=== PATIENT | male | born 1955 | race Caucasian/White ===

== ENCOUNTER 2016-11-10 06:04 | Inpatient (IN) | payer BC ==
--- NOTE | 2016-11-10 06:01 | PCM.PREANE ---
Preanesthetic Assessment - Anesthesia/Transfusion/Family Hx Anesthesia History: Prior Anesthesia Without Reaction Family History of Anesthesia Reaction: No Transfusion History: No Prior Transfusion(s) Intubation History: Unknown - Review of Systems General: No Symptoms Pulmonary: No Symptoms Cardiovascular: No Symptoms Gastrointestinal: No symptoms (GERD) Neurological: No Symptoms Other: Reports: None (history of blood clotting disorder), Thyroid Problems ( hypothyroid) - Physical Assessment NPO Status Date: 11/09/16 NPO Status Time: 22:00 Pulse: 80 O2 Sat by Pulse Oximetry: 97 Respiratory Rate: 16 Blood Pressure: 172/74 Temperature: 37.0 C Height: 1.72 m Weight: 87.543 kg ASA Class: 2 Mental Status: Alert & Oriented x3 Airway Class: Mallampati = 1 Dentition: Reports: Normal Dentition, Caries Thyro-Mental Finger Breadths: 3 Mouth Opening Finger Breadths: 3 ROM/Head Extension: Full Lungs: Clear to auscultation, Normal respiratory effort Cardiovascular: Regular Rate, Irregular Rhythm (known pac's noted per EKG) - Lab Values: Laboratory Last Values MRSA (PCR) Negative 10/29/16 13:18 Lab values reviewed and noted and within acceptable ranges to proceed with scheduled procedure. Platelets= 161,000 CXR: negative except minimal scoliosis noted - Imaging/EKG Impressions: EKG: atrial arrhtythmia with pac's atrial [id number]. Holter Monitor: Basic rhythm =SR rate [id number], average rate=60bpm. - Allergies Allergies/Adverse Reactions: Allergies Allergy/AdvReac Type Severity Reaction Status Date / Time No Known Allergies Allergy Verified 11/09/16 16:27 - Anesthesia Plan Pre-Op Medication Ordered: None - Acknowledgements Anesthesia Type Planned: Spinal Pt an Appropriate Candidate for the Planned Anesthesia: Yes Alternatives and Risks of Anesthesia Discussed w Pt/Guardian: Yes Pt/Guardian Understands and Agrees with Anesthesia Plan: Yes PreAnesthesia Questionnaire HEENT History: Reports: Impaired Vision, Other (See Below) Other HEENT History: wears glasses Cardiovascular History: Reports: High Cholesterol Respiratory History: Reports: None 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 History: Reports: BPH, Other (See Below) Other 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 History: urinary frequency 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 Neurological History: Reports: None Psychiatric History: Reports: None Endocrine/Metabolic History: Reports: Hypothyroidism Hematologic History: Reports: Bleeding Disorder Immunologic History: Reports: None Oncologic (Cancer) History: Reports: None Dermatologic History: Reports: None - Past Surgical History Head Surgeries/Procedures: Reports: None GI Surgical History: Reports: Colonoscopy Musculoskeletal Surgical History: Reports: Arthroscopic Knee - SUBSTANCE USE Smoking Status *Q: Former Smoker Tobacco Use Within Last Twelve Months: No Recreational Drug Use History: No - HOME MEDS Home Medications: Home Meds Ascorbic Acid [Vitamin C] 1,000 mg PO DAILY 11/09/16 [History] Calcium Carbonate [Calcium] 600 mg PO DAILY 11/09/16 [History] Fish Oil/[place]-3 Fatty Acids [Fish Oil 1,000 MG] 1,000 mg PO DAILY 11/09/16 [ History] Glucosamine HCl [Glucosamine] 1,500 mg PO DAILY 11/09/16 [History] Magnesium Oxide [Magnesium] 400 mg PO DAILY 11/09/16 [History] Thyroid [[place] Thyroid] 60 mg PO DAILY 11/09/16 [History] - CURRENT (IN HOUSE) MEDS Current Meds: Current Medications Morphine Sulfate 8 mg/Epinephrine HCl 0.3 mg/Cefuroxime Sodium 750 mg/Ketorolac Tromethamine 30 mg/Sodium Chloride 27.9 ml 0 mg .XX ONETIME ONE Stop: 11/10/16 05:02 Lactated Ringer's (Ringers, Lactated) 1,000 mls @ 125 mls/hr IV ASDIRECTED JENNIFER Lidocaine/Sodium Bicarbonate (Buffered Lidocaine 1% In Ns 8.4%) 0.25 ml IV ONETIME PRN PRN Reason: Prior to IV Start Sodium Chloride (Saline Flush) 10 ml FLUSH ASDIRECTED PRN PRN Reason: Keep Vein Open
[~2016-11-10 06:04] MED LIST: Iodine/Sodium Iodide 2% Tincture 30 ML Bottle ONE; Lactated Ringers 1,000 ML IV SCH; Lidocaine 1%/Sod Bicarbonate in NS 8.4% 1 ML Syringe IV PRN; Sodium Chloride 0.9% 10 ML Syringe FLUSH PRN; ceFAZolin 1 GM Vial ONE
[2016-11-10] MEDS ORDERED: ceFAZolin 1 GM Vial ONE (06:21)
[2016-11-10] MEDS ORDERED: Lactated Ringers 1,000 ML ONE ×2 (06:21→08:35)
[2016-11-10] MEDS ORDERED: Propofol 200 MG/20 ML SDV ONE ×2 (06:21→08:17)
[2016-11-10] MEDS ORDERED: Ondansetron 4 MG/2 ML SDV ONE (06:21)
[2016-11-10] MEDS ORDERED: Midazolam 1 MG/ML 2 ML SDV ONE ×2 (06:22→08:46)
[2016-11-10] MEDS ORDERED: fentaNYL 100 MCG/2 ML SDV ONE (06:23)
[2016-11-10] MEDS ORDERED: Morphine PF 10 MG/10 ML SDV ONE (06:23)
[2016-11-10] MEDS ORDERED: ePHEDrine 50 MG/ML SDV ONE ×2 (07:20→08:54)
[2016-11-10] MEDS ORDERED: HYDROmorphone 0.5 MG/0.5 ML Syringe IVPUSH PRN (07:25)
[2016-11-10] MEDS ORDERED: Ondansetron 4 MG/2 ML SDV IVPUSH PRN ×2 (07:25→10:49)
[2016-11-10] MEDS: Morphine 8 MG, EPINEPHrine 0.3 MG, Cefuroxime 750 MG, Ketorolac 30 MG, Sodium Chloride ... ONE ×15 (08:27→11:53)
[2016-11-10] MEDS: Bupivacaine 0.25% 30 ML SDV ONE ×2 (08:28→08:35)
[2016-11-10] MEDS ORDERED: diphenhydrAMINE 50 MG/ML SDV IVPUSH PRN (09:00)
[2016-11-10] MEDS ORDERED: ePHEDrine 50 MG/ML SDV IVPUSH PRN (09:00)
[2016-11-10] MEDS ORDERED: fentaNYL 100 MCG/2 ML SDV IVPUSH PRN (09:00)
--- NOTE | 2016-11-10 09:15 | PCM.POSTAN ---
POST ANESTHESIA ASSESSMENT - MENTAL STATUS Mental Status: alert - VITAL SIGNS Pulse Rate: 60 SaO2: 96 Resp Rate: 12 Blood Pressure: 127/57 Temperature: 36.6 C - RESPIRATORY Respiratory Status: respiratory rate WNL, airway patent, O2 saturation stable - CARDIOVASCULAR CV Status: pulse rate WNL, blood pressure stable - GASTROINTESTINAL GI Status: no symptoms - POST OP HYDRATION Hydration Status: adequate & stable
--- NOTE | 2016-11-10 10:30 | CR ---
Right knee: Two portable views of the right knee were obtained. Comparison: No previous study. Knee prosthesis is seen. Components are aligned. Soft tissue air is seen. This is from the surgical procedure. Underlying bony structures are intact. Impression: 1. Recently placed right knee prosthesis. Nothing acute is seen. Diagnostic code #2
[2016-11-10] MEDS ORDERED: Magnesium Hydroxide 400 MG/5 ML Susp 30 ML Cup PO PRN (10:48)
[2016-11-10] MEDS ORDERED: Morphine 2 MG/ML Syringe IVPUSH PRN (10:48)
--- NOTE | 2016-11-10 10:48 | PCM.OPNOTE ---
- General Post-Op/Procedure Note Date of Surgery/Procedure: 11/10/16 Operative Procedure(s): right total knee arthroplasty Pre Op Diagnosis: right knee osteoarthrosis Post-Op Diagnosis: Same Anesthesia Technique: Local, MAC, Spinal Primary Surgeon: Antione Kern Anesthesia Provider: Carolyne Mauricio Brick Cleaner: Bonnie Tristan Brick Cleaner: Savana Cronin EBL in mLs: 100 Complications: None Condition: Good Free Text/Narrative:: Intake & Output 11/09/16 11/10/16 11/10/16 22:59 06:59 14:59 Intake Total 200 Output Total 455 Balance -255
[2016-11-10] MEDS ORDERED: Bisacodyl 5 MG Tab PO PRN (10:49)
[2016-11-10] MEDS ORDERED: Sennosides 8.6 MG Tab PO PRN (10:50)
--- NOTE | 2016-11-10 12:17 | PCM.CONS ---
H&P History of Present Illness - General Date of Service: 11/10/16 Admit Problem/Dx: Admission Diagnosis/Problem Admission Diagnosis/Problem Osteoarthritis of knee Source of Information: Patient, EMS Notes Reviewed, Old Records History Limitations: Reports: No Limitations - History of Present Illness Initial Comments - Free Text/Narative: Tao is seen postoperatively this afternoon, s/p Rt TKA with Dr. Kern. Pain is under good control, nausea postop but no vomiting at time of my exam. Otherwise doing well and without concerns. PMH significant for Hypothyroidism, HLD, BPH, GERD, hx clotting disorder and osteoarthritis. - Related Data Allergies/Adverse Reactions: Allergies Allergy/AdvReac Type Severity Reaction Status Date / Time No Known Allergies Allergy Verified 11/10/16 07:03 Home Medications: Home Meds Ascorbic Acid [Vitamin C] 1,000 mg PO DAILY 11/09/16 [History] Calcium Carbonate [Calcium] 600 mg PO DAILY 11/09/16 [History] Fish Oil/[place]-3 Fatty Acids [Fish Oil 1,000 MG] 1,000 mg PO DAILY 11/09/16 [ History] Glucosamine HCl [Glucosamine] 1,500 mg PO DAILY 11/09/16 [History] Magnesium Oxide [Magnesium] 400 mg PO DAILY 11/09/16 [History] Thyroid [[place] Thyroid] 60 mg PO DAILY 11/09/16 [History] Past Medical History HEENT History: Reports: Impaired Vision, Other (See Below) Other HEENT History: wears glasses Cardiovascular History: Reports: High Cholesterol Respiratory History: Reports: None 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 History: Reports: BPH, Other (See Below) Other 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 History: 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 Neurological History: Reports: None Psychiatric History: Reports: None Endocrine/Metabolic History: Reports: Hypothyroidism Hematologic History: Reports: Bleeding Disorder Immunologic History: Reports: None Oncologic (Cancer) History: Reports: None Dermatologic History: Reports: None - Past Surgical History Head Surgeries/Procedures: Reports: None GI Surgical History: Reports: Colonoscopy Musculoskeletal Surgical History: Reports: Arthroscopic Knee Social & Family History - Tobacco Use Smoking Status *Q: Former Smoker Used Tobacco, but Quit: Yes Month Tobacco Last Used: 30 some years ago - Recreational Drug Use Recreational Drug Use: No H&P Review of Systems - Review of Systems: Review Of Systems: See Below General: Reports: No Symptoms HEENT: Reports: No Symptoms Pulmonary: Reports: No Symptoms Cardiovascular: Reports: No Symptoms Gastrointestinal: Reports: No Symptoms 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: Reports: No Symptoms Musculoskeletal: Reports: Leg Pain Psychiatric: Reports: No Symptoms Neurological: Reports: No Symptoms Exam - Exam Exam: See Below - Vital Signs Vital Signs: Last Vital Signs Temp 97.4 F 11/10/16 11:50 Pulse 91 11/10/16 11:50 Resp 16 11/10/16 11:50 BP 107/80 11/10/16 11:48 Pulse Ox 96 11/10/16 11:50 Weight: 193 lb - Exam Quality Assessment: DVT Prophylaxis General: Alert, Oriented, Cooperative HEENT: Conjunctiva Clear, EOMI, Hearing Intact, Mucosa Moist & [place], Pupils Equal, Pupils Reactive, PERRLA Neck: Supple Lungs: Clear to Auscultation, Normal Respiratory Effort Cardiovascular: Regular Rate, Regular Rhythm Abdomen: Normal Bowel Sounds, Soft. No: Distention, Guarding, Rigidity, Rebound , Splenomegaly (Male) Exam: Deferred Rectal (Males) Exam: Deferred Extremities: Other ([place] wrap to rt leg; SCD's, ice to rt knee) Peripheral Pulses: 1+: Dorsalis Pedis (L), Dorsalis Pedis (R) Skin: Warm, Dry Neurological: Cranial Nerves Intact Neuro Extensive - Mental Status: Alert, Oriented x3, Normal Mood/Affect, Normal Cognition Psychiatric: Alert, Normal Affect, Normal Mood Consult PN Assessment/Plan POD#: 0 Procedures: Procedures ASSAY OF FERRITIN (10/23/16) ASSAY OF FREE THYROXINE (05/28/16) ASSAY OF PREALBUMIN (10/23/16) ASSAY THYROID STIM HORMONE (05/28/16) CHEST X-RAY 2VW FRONTAL&LATL (10/23/16) COMPLETE CBC W/AUTO DIFF WBC (10/23/16) COMPREHEN METABOLIC PANEL (10/23/16) ECG MONIT/REPRT UP TO 48 HRS (10/23/16) ECG MONIT/REPRT UP TO 48 HRS (10/23/16) LIPID PANEL (10/23/16) PROTHROMBIN TIME (10/23/16) ROUTINE VENIPUNCTURE (10/23/16) THROMBOPLASTIN TIME PARTIAL (10/23/16) URINALYSIS AUTO W/SCOPE (05/28/16) VITAMIN D 25 HYDROXY (10/23/16) (1) S/P total knee arthroplasty SNOMED Code(s): 0110108381300, 735828588, 8970462281727 Code(s): Z96.659 - PRESENCE OF UNSPECIFIED ARTIFICIAL KNEE JOINT Priority: High Current Visit: Yes Qualifiers: Laterality: right Qualified Code(s): Z96.651 - Presence of right artificial knee joint (2) Osteoarthritis SNOMED Code(s): 694486542 Code(s): M19.90 - UNSPECIFIED OSTEOARTHRITIS, UNSPECIFIED SITE Priority: High Current Visit: Yes Qualifiers: Osteoarthritis location: hip Osteoarthritis type: primary Laterality: right Qualified Code(s): M16.11 - Unilateral primary osteoarthritis, right hip (3) BPH (benign prostatic hyperplasia) SNOMED Code(s): 843645715, 361804879 Code(s): N40.0 - BENIGN PROSTATIC HYPERPLASIA WITHOUT LOWER URINRY TRACT SYMP Priority: Medium Current Visit: Yes Qualifiers: Lower urinary tract symptom detail: unspecified (4) Hypothyroid SNOMED Code(s): 59403004 Code(s): E03.9 - HYPOTHYROIDISM, UNSPECIFIED Priority: Medium Current Visit: No Qualifiers: Hypothyroidism type: unspecified Qualified Code(s): E03.9 - Hypothyroidism , unspecified (5) HLD (hyperlipidemia) SNOMED Code(s): 64117023 Code(s): E78.5 - HYPERLIPIDEMIA, UNSPECIFIED Priority: Medium Current Visit: No Qualifiers: Hyperlipidemia type: unspecified Qualified Code(s): E78.5 - Hyperlipidemia , unspecified (6) GERD (gastroesophageal reflux disease) SNOMED Code(s): 729903319 Code(s): K21.9 - GASTRO-ESOPHAGEAL REFLUX DISEASE WITHOUT ESOPHAGITIS Priority: Medium Current Visit: No Qualifiers: Esophagitis presence: esophagitis presence not specified Qualified Code(s) : K21.9 - Gastro-esophageal reflux disease without esophagitis (7) Blood clotting disorder SNOMED Code(s): 13476668 Code(s): D68.9 - COAGULATION DEFECT, UNSPECIFIED Priority: Medium Current Visit: No Problem List Initiated/Reviewed/Updated: Yes My Orders last 24 hours: My Active Orders 11/11/16 05:11 MAGNESIUM [CHEM] AM 11/11/16 09:00 Magnesium Oxide 400 mg PO DAILY Thyroid [[place] Thyroid] 60 mg PO DAILY Plan: I/P: S/P Rt TKA; with Dr. Kern, POD #0 -Pain management and DVT prophylax per primary team -PT/OT -IS/RT -Am labs; follow hgb - Postop nausea; will try zofran PRN, if not helping scopolamine transdermal. Chronic: GERD- cont with GI prophylax, pepcid BID Hypothyroid- cont home med, armour thyroid HLD BPH- monitor urine output for retention Hx of clotting disorder; DVT prophylax Other: DVT/GI prophylax PT/OT CM/SW for dc planning- plans for dc home with family Patient is Full Code status Requesting Provider: Dr. Kern Date Consult Requested: 11/10/16 Reason for Consult: Postoperative medical management Patient History Reviewed: Yes
[2016-11-10] MEDS ORDERED: Scopolamine 1.5 MG Transdermal Patch TRDERM PRN (14:44)
[2016-11-10] MEDS: ceFAZolin 2 GM in Premix Bag 1 BAG IV SCH ×2 (15:01→23:22)
--- NOTE | 2016-11-10 18:16 | OR ---
DATE OF OPERATION: 11/10/2016 SURGEON: Antione Kern MD OPERATION PERFORMED: Right total knee arthroplasty. PREOPERATIVE DIAGNOSIS: Right knee osteoarthrosis. POSTOPERATIVE DIAGNOSIS: Right knee osteoarthrosis. ANESTHESIA: Local MAC with spinal. ANESTHESIA PROVIDER: Carolyne Mauricio CRNA. DETAILER: Bonnie Tristan PA-C and Savana Cronin LPN. ESTIMATED BLOOD LOSS: 100 mL COMPLICATIONS: None. CONDITION: Stable. IMPLANTS: 1. [place] size 6 PS femur. 2. [place] size 7 universal tibial base plate. 3. [place] size 7, 9 mm PS X3 polyethylene. 4. 35 x 10 mm Gayla asymmetric patella. DESCRIPTION OF PROCEDURE: The patient was identified in the preop holding area. Proper site was marked and identified by the surgeon. The patient was taken back to the operating theater. After adequate anesthesia, the patient's right lower extremity had a nonsterile tourniquet applied and it was then sterilely prepped and draped in the usual sterile fashion. OR timeout was performed. The patient received 2 g IV Ancef. At this time, right lower extremity was exsanguinated. Tourniquet was insufflated to 300 mmHg. Standard medial parapatellar incision was made. Medial parapatellar arthrotomy was created. Deep fibers of the MCL were raised and anterior fat pad was resected. At this time, attention was turned to the patella. Patella measured 24, it was resected to a 14 for a 35 x 10 mm patella. Drill holes were then drilled and found to be in adequate position. The drill was then drilled in the distal femur and the intramedullary distal femoral cutting guide was then placed. 8 mm was resected off the distal femur and was found to be an adequate resection. Sizing guide was placed. It was found to be a size 6 femur that was shown on the implant record at the beginning of this dictation. The drill holes were drilled for the epicondylar axis using [place] line and epicondyles as reference. At this time, the 4-in-1 cutting block was placed. An anterior posterior and anterior and posterior chamfer cuts were then completed. The correct size box cut was then placed and the box cut was completed and found to be an adequate resection. Attention was turned to the tibia. The posterior medial lateral retractors were placed. The extramedullary tibial guide was placed. It was placed in the old footprint of the ACL. It was aligned with the center of the ankle and 0 degrees of slope, 9 mm was then resected off the unaffected lateral side. There was found to be an acceptable reduction. At this time, posterior osteophytes were removed along with medial and lateral meniscus. A trial implant was placed with a correct sized tibia that was mentioned at the beginning of the dictation. A 9 mm trial spacer was then placed. The patient's knee was brought through range of motion. The patella was tracking centrally and was stable to varus and valgus stress. Alignment was found to be roughly at 0 degrees. At this time, cement was mixed on the back table. The tibia was stamped and drilled in proper rotation. All cut surfaces were irrigated with pulse lavage irrigation with Ancef and then completely dried. Once this was completed, then the cement was ready. The universal tibial base plate was cemented in place. Next, the [address] and the 9-mm PS X3 polyethylene was placed. The patient's knee was brought into full extension. Excess cement was removed. The patella was then cemented in place at this time. Tourniquet was deflated. One liter dilute Betadine solution was irrigated through the knee along with 3 L of pulse lavage irrigation with Ancef. Periarticular injection was then completed. The patient's knee was brought through a range of motion. Once the cement had time to set up and it was found to be stable to varus valgus stress, the patella was tracking centrally with full range of motion. At this time, a #2 barbed suture was used for closure of the medial parapatellar arthrotomy. Topical tranexamic acid was placed. 2-0 Vicryl was used subcutaneously, a running 3-0 Monocryl was used subcuticularly. The patient tolerated the procedure well and was sent to the PACU in stable condition. MAGDI /[id number]
[2016-11-10] MEDS: Docusate Sodium 100 MG Cap PO SCH (20:49)
[2016-11-10] MEDS: Famotidine 20 MG Tab PO SCH (20:49)
[2016-11-10] MEDS: Cyclobenzaprine 10 MG Tab PO PRN (23:27)
[2016-11-10] MEDS: Acetaminophen/oxyCODONE 325-5 MG Tab PO PRN (23:27)
[2016-11-11] MEDS ORDERED: Thyroid 60 MG Tab PO SCH (06:00)
[2016-11-11] MEDS: ceFAZolin 2 GM in Premix Bag 1 BAG IV SCH (06:12)
[2016-11-11] MEDS ORDERED: Multivitamins,Therapeutic Tab PO SCH (07:00)
[2016-11-11] MEDS: Acetaminophen/oxyCODONE 325-5 MG Tab PO PRN ×2 (07:49→13:27)
--- NOTE | 2016-11-11 08:26 | PCM48HPAN ---
Post Anesthesia Note - EVALUATION WITHIN 48HRS OF ANESTHETIC Vital Signs in Normal Range: Yes Patient Participated in Evaluation: Yes Respiratory Function Stable: Yes Airway Patent: Yes Cardiovascular Function Stable: Yes Hydration Status Stable: Yes Pain Control Satisfactory: Yes Nausea and Vomiting Control Satisfactory: Yes Mental Status Recovered: Yes - COMMENTS/OBSERVATIONS Free Text/Narrative:: Pt did have some nausea yesterday ending at about 7 pm. now resolved. spinal resolved completely. Good pain control on oral meds. up to restroom without difficulty, passing urine. did have and episode of bradycardia down to the high thirties without other symptoms. EKG obtained and showed Sinus rhythm. no further episodes, no further treatment. Pt states this happens to him when he is in the hospital
--- NOTE | 2016-11-11 08:40 | PCM.PN ---
<AlondraDelilah M - Last Filed: 11/11/16 11:23> - General Info Date of Service: 11/11/16 Admission Dx/Problem (Free Text): Admission Diagnosis/Problem Admission Diagnosis/Problem Osteoarthritis of knee POD #[address] Kern Pain under good control, nausea resolved. Bradycardia reported overnight; patient with baseline bradycardia; Holter obtained preop per PCP. Patient is asymptomatic with normal B/P, no dizziness, lightheadedness, palpitations or other concerns. Plans for DC home today with . Functional Status: Reports: pain controlled, tolerating diet, ambulating, urinating. Denies: new symptoms - Review of Systems General: Reports: No Symptoms HEENT: Reports: no symptoms Pulmonary: Reports: no symptoms Cardiovascular: Reports: No Symptoms Gastrointestinal: Reports: No symptoms 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: Reports: no symptoms Musculoskeletal: Reports: leg pain Skin: Reports: no symptoms Neurological: Reports: No Symptoms Psychiatric: Reports: no symptoms - Patient Data Vitals - most recent: Last Vital Signs Temp 98.1 F 11/11/16 07:54 Pulse 30 L 11/11/16 07:54 Resp 18 11/11/16 07:54 BP 116/55 L 11/11/16 07:54 Pulse Ox 95 11/11/16 07:54 Weight - most recent: 87.543 kg I&O - last 24 hours: Intake & Output 11/10/16 11/11/16 11/11/16 22:59 06:59 14:59 Intake Total 0 Output Total 1175 Balance -1175 Lab Results last 24 hrs: Laboratory Results - last 24 hr 11/11/16 11/11/16 Range/Units 05:21 05:21 WBC 7.67 (4.23-9.07) K/mm3 RBC 3.57 L (4.63-6.08) M/mm3 Hgb 10.8 L (13.7-17.5) gm/L Hct 32.7 L (40.1-51.0) % MCV 91.6 (79.0-92.2) fl MCH 30.3 (25.7-32.2) pg MCHC 33.0 (32.2-35.5) g/dl RDW Std Deviation 43.3 (35.1-43.9) fL Plt Count 165 (163-337) K/mm3 MPV 9.4 (9.4-12.3) fl Neut % (Auto) 67.6 (34.0-67.9) % Lymph % (Auto) 21.6 L (21.8-53.1) % Crowley % (Auto) 9.4 (5.3-12.2) % Eos % (Auto) 1.0 (0.8-7.0) Baso % (Auto) 0.3 (0.1-1.2) % Neut # (Auto) 5.18 (1.78-5.38) K/mm3 Lymph # (Auto) 1.66 (1.32-3.57) K/mm3 Crowley # (Auto) 0.72 (0.30-0.82) K/mm3 Eos # (Auto) 0.08 (0.04-0.54) K/mm3 Baso # (Auto) 0.02 (0.01-0.08) K/mm3 Sodium 138 (136-145) mEq/L Potassium 4.3 (3.5-5.1) mEq/L Chloride 102 (98-107) mEq/L Carbon Dioxide 30 (21-32) mEq/L Anion Gap 10.3 (5-15) BUN 16 (7-18) mg/dL Creatinine 1.2 (0.7-1.3) mg/dL Est Cr Clr Drug Dosing 62.48 mL/min Estimated GFR (MDRD) > 60 (>60) mL/min BUN/Creatinine Ratio 13.3 L (14-18) Glucose 117 H (74-106) mg/dL Calcium 8.1 L (8.5-10.1) mg/dL Magnesium 1.7 L (1.8-2.4) mg/dl Total Bilirubin 0.5 (0.2-1.0) mg/dL AST 12 L (15-37) U/L ALT 20 (16-63) U/L Alkaline Phosphatase 40 L (46-116) U/L Total Protein 5.9 L (6.4-8.2) g/dl Albumin 3.1 L (3.4-5.0) g/dl Globulin 2.8 gm/dL Albumin/Globulin Ratio 1.1 (1-2) Med Orders - Current: Current Medications Aspirin (Ecotrin) 325 mg PO BID [facility] Bisacodyl (Dulcolax) 5 mg PO DAILY PRN PRN Reason: Constipation Cyclobenzaprine HCl (Flexeril) 10 mg PO TID PRN PRN Reason: Spasms Last Admin: 11/10/16 23:27 Dose: 10 mg Docusate Sodium (Colace) 100 mg PO BID [facility] Last Admin: 11/10/16 20:49 Dose: 100 mg Famotidine (Pepcid) 20 mg PO BID [facility] Last Admin: 11/10/16 20:49 Dose: 20 mg Magnesium Hydroxide (Milk Of Magnesia) 30 ml PO BID PRN PRN Reason: Constipation Magnesium Oxide (Magnesium Oxide) 400 mg PO DAILY [facility] Magnesium Oxide (Magnesium Oxide) 400 mg PO DAILY [facility] Miscellaneous Information (Remove Patch) 0 ea TRDERM Q72H [facility] Morphine Sulfate (Morphine) 2 mg IVPUSH Q2H PRN PRN Reason: Breakthrough Pain Multivitamins (Thera) 1 each PO WITHBREAKFAST [facility] Last Admin: 11/11/16 07:49 Dose: 1 each Ondansetron HCl (Zofran) 4 mg IVPUSH Q6H PRN PRN Reason: Nausea/Vomiting Last Admin: 11/10/16 13:13 Dose: 4 mg Oxycodone/Acetaminophen (Percocet 325-5 Mg) 1 - 2 tab PO Q4H PRN PRN Reason: Pain Last Admin: 11/11/16 07:49 Dose: 2 tab Scopolamine (Transderm-Scop) 1.5 mg TRDERM Q72H PRN PRN Reason: Nausea Last Admin: 11/10/16 14:59 Dose: 1.5 mg Senna (Senna) 8.6 mg PO BID PRN PRN Reason: Constipation Thyroid ([place] Thyroid) 60 mg PO ACBREAKFAST [facility] Last Admin: 11/11/16 05:51 Dose: 60 mg Discontinued Medications Bupivacaine HCl (Marcaine 0.25%) Confirm Administered Dose 30 ml .ROUTE .STK- MED ONE Stop: 11/10/16 06:00 Last Admin: 11/10/16 08:35 Dose: 30 ml Cefazolin Sodium (Ancef) Confirm Administered Dose 2 gm .ROUTE .STK-MED ONE Stop: 11/10/16 06:00 Last Admin: 11/10/16 08:30 Dose: 2 gm Cefazolin Sodium (Ancef) Confirm Administered Dose 2 gm .ROUTE .STK-MED ONE Stop: 11/10/16 06:22 Morphine Sulfate 8 mg/Epinephrine HCl 0.3 mg/Cefuroxime Sodium 750 mg/Ketorolac Tromethamine 30 mg/Sodium Chloride 27.9 ml 0 mg .XX ONETIME ONE Stop: 11/10/16 07:46 Last Admin: 11/10/16 11:53 Dose: Not Given Diphenhydramine HCl (Benadryl) 25 mg IVPUSH Q6H PRN PRN Reason: pruritis Stop: 11/10/16 12:00 Ephedrine Sulfate (Ephedrine Sulfate) Confirm Administered Dose 50 mg .ROUTE .STK-MED ONE Stop: 11/10/16 07:21 Ephedrine Sulfate (Ephedrine Sulfate) 5 mg IVPUSH ASDIRECTED PRN PRN Reason: Hypotension Stop: 11/10/16 12:00 Ephedrine Sulfate (Ephedrine Sulfate) Confirm Administered Dose 50 mg .ROUTE .STK-MED ONE Stop: 11/10/16 08:55 Fentanyl (Sublimaze) Confirm Administered Dose 100 mcg .ROUTE .STK-MED ONE Stop: 11/10/16 06:24 Fentanyl (Sublimaze) 50 mcg IVPUSH Q5M PRN PRN Reason: Pain Stop: 11/10/16 09:16 Hydromorphone HCl (Dilaudid) 0.5 mg IVPUSH Q15M PRN PRN Reason: severe pain Stop: 11/10/16 07:41 Lactated Ringer's (Ringers, Lactated) 1,000 mls @ 125 mls/hr IV ASDIRECTED [facility] Last Admin: 11/10/16 06:45 Dose: 125 mls/hr Lidocaine HCl (Xylocaine-Mpf 1%) Confirm Administered Dose 10 mls @ as directed .ROUTE .STK-MED ONE Stop: 11/10/16 06:22 Lactated Ringer's (Ringers, Lactated) Confirm Administered Dose 1,000 mls @ as directed .ROUTE .STK-MED ONE Stop: 11/10/16 06:22 Cefazolin Sodium/Dextrose 2 gm (/ Premix) 50 mls @ 100 mls/hr IV Q8H [facility] Stop: 11/11/16 07:29 Last Admin: 11/11/16 06:12 Dose: 100 mls/hr Lactated Ringer's (Ringers, Lactated) Confirm Administered Dose 1,000 mls @ as directed .ROUTE .STK-MED ONE Stop: 11/10/16 08:36 Iodine (Iodine 2% Mild Tincture) Confirm Administered Dose 30 ml .ROUTE .STK- MED ONE Stop: 11/10/16 06:00 Last Admin: 11/10/16 08:26 Dose: 18 ml Lidocaine/Sodium Bicarbonate (Buffered Lidocaine 1% In Ns 8.4%) 0.25 ml IV ONETIME PRN PRN Reason: Prior to IV Start Last Admin: 11/10/16 06:45 Dose: 0.25 ml Midazolam HCl (Versed 1 Mg/Ml) Confirm Administered Dose 2 mg .ROUTE .STK-MED ONE Stop: 11/10/16 06:23 Midazolam HCl (Versed 1 Mg/Ml) Confirm Administered Dose 2 mg .ROUTE .STK-MED ONE Stop: 11/10/16 08:47 Morphine Sulfate (Duramorph Pf) Confirm Administered Dose 10 mg .ROUTE .STK-MED ONE Stop: 11/10/16 06:24 Ondansetron HCl (Zofran) Confirm Administered Dose 4 mg .ROUTE .STK-MED ONE Stop: 11/10/16 06:22 Ondansetron HCl (Zofran) 4 mg IVPUSH ONETIME PRN PRN Reason: Nausea/Vomiting Stop: 11/10/16 12:00 Propofol (Diprivan 20 Ml) Confirm Administered Dose 400 mg .ROUTE .STK-MED ONE Stop: 11/10/16 06:22 Propofol (Diprivan 20 Ml) Confirm Administered Dose 200 mg .ROUTE .STK-MED ONE Stop: 11/10/16 08:18 Sodium Chloride (Saline Flush) 10 ml FLUSH ASDIRECTED PRN PRN Reason: Keep Vein Open Stop: 11/10/16 12:00 Tranexamic Acid (Cyklokapron) Confirm Administered Dose 1,000 mg .ROUTE .STK- MED ONE Stop: 11/10/16 06:00 Last Admin: 11/10/16 08:41 Dose: 1,000 mg - Exam Quality Assessment: DVT prophylaxis General: alert, oriented, cooperative, no acute distress HEENT: Pupils equal, Pupils reactive, EOMI, Mucous membr. moist/pink Neck: supple Lungs: Clear to auscultation, Normal respiratory effort Cardiovascular: Regular Rate, Regular Rhythm Abdomen: bowel sounds present, soft, no tenderness, no distension (Male) Exam: Deferred Extremities: no edema, other (teds SCD's) Peripheral Pulses: 1+: Dorsalis Pedis (L), Dorsalis Pedis (R) Neurological: no new focal deficit Psy/Mental Status: alert, normal affect, normal mood - Problem List & Annotations (1) S/P total knee arthroplasty SNOMED Code(s): 0438026691533, 068310130, 0098243465608 Code(s): Z96.659 - PRESENCE OF UNSPECIFIED ARTIFICIAL KNEE JOINT Status: Acute Priority: High Current Visit: Yes Qualifiers: Laterality: right Qualified Code(s): Z96.651 - Presence of right artificial knee joint (2) Osteoarthritis SNOMED Code(s): 167947698 Code(s): M19.90 - UNSPECIFIED OSTEOARTHRITIS, UNSPECIFIED SITE Status: Acute Priority: High Current Visit: Yes Qualifiers: Osteoarthritis location: hip Osteoarthritis type: primary Laterality: right Qualified Code(s): M16.11 - Unilateral primary osteoarthritis, right hip (3) BPH (benign prostatic hyperplasia) SNOMED Code(s): 357393768, 326922237 Code(s): N40.0 - BENIGN PROSTATIC HYPERPLASIA WITHOUT LOWER URINRY TRACT SYMP Status: Acute Priority: Medium Current Visit: Yes Qualifiers: Lower urinary tract symptom detail: unspecified (4) Hypothyroid SNOMED Code(s): 22545653 Code(s): E03.9 - HYPOTHYROIDISM, UNSPECIFIED Status: Acute Priority: Medium Current Visit: No Qualifiers: Hypothyroidism type: unspecified Qualified Code(s): E03.9 - Hypothyroidism , unspecified (5) HLD (hyperlipidemia) SNOMED Code(s): 68355605 Code(s): E78.5 - HYPERLIPIDEMIA, UNSPECIFIED Status: Acute Priority: Medium Current Visit: No Qualifiers: Hyperlipidemia type: unspecified Qualified Code(s): E78.5 - Hyperlipidemia , unspecified (6) GERD (gastroesophageal reflux disease) SNOMED Code(s): 899732848 Code(s): K21.9 - GASTRO-ESOPHAGEAL REFLUX DISEASE WITHOUT ESOPHAGITIS Status: Acute Priority: Medium Current Visit: No Qualifiers: Esophagitis presence: esophagitis presence not specified Qualified Code(s) : K21.9 - Gastro-esophageal reflux disease without esophagitis (7) Blood clotting disorder SNOMED Code(s): 02486821 Code(s): D68.9 - COAGULATION DEFECT, UNSPECIFIED Status: Acute Priority: Medium Current Visit: No - Problem List Review Problem List Initiated/Reviewed/Updated: Yes - My Orders Last 24 Hours: My Active Orders 11/10/16 14:44 Scopolamine [Transderm-Scop] 1.5 mg TRDERM Q72H PRN 11/11/16 06:00 Thyroid [[place] Thyroid] 60 mg PO ACBREAKFAST 11/11/16 09:00 Magnesium Oxide 400 mg PO DAILY Magnesium Oxide 400 mg PO DAILY 11/13/16 15:00 Remove Patch 0 ea TRDERM Q72H - Plan Plan:: I/P: S/P Rt TKA; with Dr. Kern, POD #1 -Pain management and DVT prophylax per primary team -PT/OT -IS/RT -Am labs; follow hgb--stable - Postop nausea; will try zofran PRN, if not helping scopolamine transdermal- ---resolved Chronic: GERD- cont with GI prophylax, pepcid BID Hypothyroid- cont home med, armour thyroid HLD BPH- monitor urine output for retention Hx of clotting disorder; DVT prophylax Other: DVT/GI prophylax PT/OT CM/SW for dc planning- plans for dc home with family, today. Patient is Full Code status <Elvira Kingsley - Last Filed: 11/11/16 13:00> - Patient Data Vitals - most recent: Last Vital Signs Temp 36.7 C 11/11/16 07:54 Pulse 30 L 11/11/16 07:54 Resp 18 11/11/16 07:54 BP 116/55 L 11/11/16 07:54 Pulse Ox 95 11/11/16 07:54 I&O - last 24 hours: Intake & Output 11/10/16 11/11/16 11/11/16 22:59 06:59 14:59 Intake Total 360 380 Output Total 1175 400 Balance -815 -20 Lab Results last 24 hrs: Laboratory Results - last 24 hr 11/11/16 11/11/16 Range/Units 05:21 05:21 WBC 7.67 (4.23-9.07) K/mm3 RBC 3.57 L (4.63-6.08) M/mm3 Hgb 10.8 L (13.7-17.5) gm/L Hct 32.7 L (40.1-51.0) % MCV 91.6 (79.0-92.2) fl MCH 30.3 (25.7-32.2) pg MCHC 33.0 (32.2-35.5) g/dl RDW Std Deviation 43.3 (35.1-43.9) fL Plt Count 165 (163-337) K/mm3 MPV 9.4 (9.4-12.3) fl Neut % (Auto) 67.6 (34.0-67.9) % Lymph % (Auto) 21.6 L (21.8-53.1) % Crowley % (Auto) 9.4 (5.3-12.2) % Eos % (Auto) 1.0 (0.8-7.0) Baso % (Auto) 0.3 (0.1-1.2) % Neut # (Auto) 5.18 (1.78-5.38) K/mm3 Lymph # (Auto) 1.66 (1.32-3.57) K/mm3 Crowley # (Auto) 0.72 (0.30-0.82) K/mm3 Eos # (Auto) 0.08 (0.04-0.54) K/mm3 Baso # (Auto) 0.02 (0.01-0.08) K/mm3 Sodium 138 (136-145) mEq/L Potassium 4.3 (3.5-5.1) mEq/L Chloride 102 (98-107) mEq/L Carbon Dioxide 30 (21-32) mEq/L Anion Gap 10.3 (5-15) BUN 16 (7-18) mg/dL Creatinine 1.2 (0.7-1.3) mg/dL Est Cr Clr Drug Dosing 62.48 mL/min Estimated GFR (MDRD) > 60 (>60) mL/min BUN/Creatinine Ratio 13.3 L (14-18) Glucose 117 H (74-106) mg/dL Calcium 8.1 L (8.5-10.1) mg/dL Magnesium 1.7 L (1.8-2.4) mg/dl Total Bilirubin 0.5 (0.2-1.0) mg/dL AST 12 L (15-37) U/L ALT 20 (16-63) U/L Alkaline Phosphatase 40 L (46-116) U/L Total Protein 5.9 L (6.4-8.2) g/dl Albumin 3.1 L (3.4-5.0) g/dl Globulin 2.8 gm/dL Albumin/Globulin Ratio 1.1 (1-2) Med Orders - Current: Current Medications Aspirin (Ecotrin) 325 mg PO BID [facility] Last Admin: 11/11/16 08:55 Dose: 325 mg Bisacodyl (Dulcolax) 5 mg PO DAILY PRN PRN Reason: Constipation Cyclobenzaprine HCl (Flexeril) 10 mg PO TID PRN PRN Reason: Spasms Last Admin: 11/10/16 23:27 Dose: 10 mg Docusate Sodium (Colace) 100 mg PO BID [facility] Last Admin: 11/11/16 08:55 Dose: 100 mg Famotidine (Pepcid) 20 mg PO BID [facility] Last Admin: 11/11/16 08:55 Dose: 20 mg Magnesium Hydroxide (Milk Of Magnesia) 30 ml PO BID PRN PRN Reason: Constipation Magnesium Oxide (Magnesium Oxide) 400 mg PO DAILY [facility] Last Admin: 11/11/16 08:55 Dose: 400 mg Magnesium Oxide (Magnesium Oxide) 400 mg PO DAILY [facility] Last Admin: 11/11/16 09:29 Dose: 400 mg Miscellaneous Information (Remove Patch) 0 ea TRDERM Q72H [facility] Morphine Sulfate (Morphine) 2 mg IVPUSH Q2H PRN PRN Reason: Breakthrough Pain Multivitamins (Thera) 1 each PO WITHBREAKFAST [facility] Last Admin: 11/11/16 07:49 Dose: 1 each Ondansetron HCl (Zofran) 4 mg IVPUSH Q6H PRN PRN Reason: Nausea/Vomiting Last Admin: 11/10/16 13:13 Dose: 4 mg Oxycodone/Acetaminophen (Percocet 325-5 Mg) 1 - 2 tab PO Q4H PRN PRN Reason: Pain Last Admin: 11/11/16 07:49 Dose: 2 tab Scopolamine (Transderm-Scop) 1.5 mg TRDERM Q72H PRN PRN Reason: Nausea Last Admin: 11/10/16 14:59 Dose: 1.5 mg Senna (Senna) 8.6 mg PO BID PRN PRN Reason: Constipation Thyroid ([place] Thyroid) 60 mg PO ACBREAKFAST [facility] Last Admin: 11/11/16 05:51 Dose: 60 mg Discontinued Medications Bupivacaine HCl (Marcaine 0.25%) Confirm Administered Dose 30 ml .ROUTE .STK- MED ONE Stop: 11/10/16 06:00 Last Admin: 11/10/16 08:35 Dose: 30 ml Cefazolin Sodium (Ancef) Confirm Administered Dose 2 gm .ROUTE .STK-MED ONE Stop: 11/10/16 06:00 Last Admin: 11/10/16 08:30 Dose: 2 gm Cefazolin Sodium (Ancef) Confirm Administered Dose 2 gm .ROUTE .STK-MED ONE Stop: 11/10/16 06:22 Morphine Sulfate 8 mg/Epinephrine HCl 0.3 mg/Cefuroxime Sodium 750 mg/Ketorolac Tromethamine 30 mg/Sodium Chloride 27.9 ml 0 mg .XX ONETIME ONE Stop: 11/10/16 07:46 Last Admin: 11/10/16 11:53 Dose: Not Given Diphenhydramine HCl (Benadryl) 25 mg IVPUSH Q6H PRN PRN Reason: pruritis Stop: 11/10/16 12:00 Ephedrine Sulfate (Ephedrine Sulfate) Confirm Administered Dose 50 mg .ROUTE .STK-MED ONE Stop: 11/10/16 07:21 Ephedrine Sulfate (Ephedrine Sulfate) 5 mg IVPUSH ASDIRECTED PRN PRN Reason: Hypotension Stop: 11/10/16 12:00 Ephedrine Sulfate (Ephedrine Sulfate) Confirm Administered Dose 50 mg .ROUTE .STK-MED ONE Stop: 11/10/16 08:55 Fentanyl (Sublimaze) Confirm Administered Dose 100 mcg .ROUTE .STK-MED ONE Stop: 11/10/16 06:24 Fentanyl (Sublimaze) 50 mcg IVPUSH Q5M PRN PRN Reason: Pain Stop: 11/10/16 09:16 Hydromorphone HCl (Dilaudid) 0.5 mg IVPUSH Q15M PRN PRN Reason: severe pain Stop: 11/10/16 07:41 Lactated Ringer's (Ringers, Lactated) 1,000 mls @ 125 mls/hr IV ASDIRECTED [facility] Last Admin: 11/10/16 06:45 Dose: 125 mls/hr Lidocaine HCl (Xylocaine-Mpf 1%) Confirm Administered Dose 10 mls @ as directed .ROUTE .STK-MED ONE Stop: 11/10/16 06:22 Lactated Ringer's (Ringers, Lactated) Confirm Administered Dose 1,000 mls @ as directed .ROUTE .STK-MED ONE Stop: 11/10/16 06:22 Cefazolin Sodium/Dextrose 2 gm (/ Premix) 50 mls @ 100 mls/hr IV Q8H [facility] Stop: 11/11/16 07:29 Last Admin: 11/11/16 06:12 Dose: 100 mls/hr Lactated Ringer's (Ringers, Lactated) Confirm Administered Dose 1,000 mls @ as directed .ROUTE .STK-MED ONE Stop: 11/10/16 08:36 Iodine (Iodine 2% Mild Tincture) Confirm Administered Dose 30 ml .ROUTE .STK- MED ONE Stop: 11/10/16 06:00 Last Admin: 11/10/16 08:26 Dose: 18 ml Lidocaine/Sodium Bicarbonate (Buffered Lidocaine 1% In Ns 8.4%) 0.25 ml IV ONETIME PRN PRN Reason: Prior to IV Start Last Admin: 11/10/16 06:45 Dose: 0.25 ml Midazolam HCl (Versed 1 Mg/Ml) Confirm Administered Dose 2 mg .ROUTE .STK-MED ONE Stop: 11/10/16 06:23 Midazolam HCl (Versed 1 Mg/Ml) Confirm Administered Dose 2 mg .ROUTE .STK-MED ONE Stop: 11/10/16 08:47 Morphine Sulfate (Duramorph Pf) Confirm Administered Dose 10 mg .ROUTE .STK-MED ONE Stop: 11/10/16 06:24 Ondansetron HCl (Zofran) Confirm Administered Dose 4 mg .ROUTE .STK-MED ONE Stop: 11/10/16 06:22 Ondansetron HCl (Zofran) 4 mg IVPUSH ONETIME PRN PRN Reason: Nausea/Vomiting Stop: 11/10/16 12:00 Propofol (Diprivan 20 Ml) Confirm Administered Dose 400 mg .ROUTE .STK-MED ONE Stop: 11/10/16 06:22 Propofol (Diprivan 20 Ml) Confirm Administered Dose 200 mg .ROUTE .STK-MED ONE Stop: 11/10/16 08:18 Sodium Chloride (Saline Flush) 10 ml FLUSH ASDIRECTED PRN PRN Reason: Keep Vein Open Stop: 11/10/16 12:00 Tranexamic Acid (Cyklokapron) Confirm Administered Dose 1,000 mg .ROUTE .STK- MED ONE Stop: 11/10/16 06:00 Last Admin: 11/10/16 08:41 Dose: 1,000 mg - Plan Plan:: Medically ready for dc.
[2016-11-11] MEDS: Docusate Sodium 100 MG Cap PO SCH (08:55)
[2016-11-11] MEDS: Famotidine 20 MG Tab PO SCH (08:55)
[2016-11-11] MEDS ORDERED: Aspirin 325 MG Tab.EC PO SCH (09:00)
[2016-11-11] MEDS ORDERED: Magnesium Oxide 400 MG Tab PO SCH ×2 (09:00)
[2016-11-11] MEDS: Cyclobenzaprine 10 MG Tab PO PRN (13:30)
[2016-11-11 13:43] VITALS: BP 112/47
--- NOTE | 2016-11-12 12:51 | PCM.SURGPN ---
- General Info Date of Service: 11/11/16 POD#: 1 Functional Status: Reports: pain controlled, tolerating diet, ambulating, urinating, other (The pt feels prepared for discharge to home. He will have the assistance of his .). Denies: new symptoms - Patient Data Vitals - most recent: Last Vital Signs Temp 99.0 F 11/11/16 12:25 Pulse 80 11/11/16 12:25 Resp 16 11/11/16 12:25 BP 112/47 L 11/11/16 12:25 Pulse Ox 92 L 11/11/16 12:25 Weight - most recent: 193 lb Med Orders - Current: Current Medications Discontinued Medications Aspirin (Ecotrin) 325 mg PO BID [facility] Last Admin: 11/11/16 08:55 Dose: 325 mg Bisacodyl (Dulcolax) 5 mg PO DAILY PRN PRN Reason: Constipation Bupivacaine HCl (Marcaine 0.25%) Confirm Administered Dose 30 ml .ROUTE .STK- MED ONE Stop: 11/10/16 06:00 Last Admin: 11/10/16 08:35 Dose: 30 ml Cefazolin Sodium (Ancef) Confirm Administered Dose 2 gm .ROUTE .STK-MED ONE Stop: 11/10/16 06:00 Last Admin: 11/10/16 08:30 Dose: 2 gm Cefazolin Sodium (Ancef) Confirm Administered Dose 2 gm .ROUTE .STK-MED ONE Stop: 11/10/16 06:22 Morphine Sulfate 8 mg/Epinephrine HCl 0.3 mg/Cefuroxime Sodium 750 mg/Ketorolac Tromethamine 30 mg/Sodium Chloride 27.9 ml 0 mg .XX ONETIME ONE Stop: 11/10/16 07:46 Last Admin: 11/10/16 11:53 Dose: Not Given Cyclobenzaprine HCl (Flexeril) 10 mg PO TID PRN PRN Reason: Spasms Last Admin: 11/11/16 13:30 Dose: 10 mg Diphenhydramine HCl (Benadryl) 25 mg IVPUSH Q6H PRN PRN Reason: pruritis Stop: 11/10/16 12:00 Docusate Sodium (Colace) 100 mg PO BID [facility] Last Admin: 11/11/16 08:55 Dose: 100 mg Ephedrine Sulfate (Ephedrine Sulfate) Confirm Administered Dose 50 mg .ROUTE .STK-MED ONE Stop: 11/10/16 07:21 Ephedrine Sulfate (Ephedrine Sulfate) 5 mg IVPUSH ASDIRECTED PRN PRN Reason: Hypotension Stop: 11/10/16 12:00 Ephedrine Sulfate (Ephedrine Sulfate) Confirm Administered Dose 50 mg .ROUTE .STK-MED ONE Stop: 11/10/16 08:55 Famotidine (Pepcid) 20 mg PO BID [facility] Last Admin: 11/11/16 08:55 Dose: 20 mg Fentanyl (Sublimaze) Confirm Administered Dose 100 mcg .ROUTE .STK-MED ONE Stop: 11/10/16 06:24 Fentanyl (Sublimaze) 50 mcg IVPUSH Q5M PRN PRN Reason: Pain Stop: 11/10/16 09:16 Hydromorphone HCl (Dilaudid) 0.5 mg IVPUSH Q15M PRN PRN Reason: severe pain Stop: 11/10/16 07:41 Lactated Ringer's (Ringers, Lactated) 1,000 mls @ 125 mls/hr IV ASDIRECTED [facility] Last Admin: 11/10/16 06:45 Dose: 125 mls/hr Lidocaine HCl (Xylocaine-Mpf 1%) Confirm Administered Dose 10 mls @ as directed .ROUTE .STK-MED ONE Stop: 11/10/16 06:22 Lactated Ringer's (Ringers, Lactated) Confirm Administered Dose 1,000 mls @ as directed .ROUTE .STK-MED ONE Stop: 11/10/16 06:22 Cefazolin Sodium/Dextrose 2 gm (/ Premix) 50 mls @ 100 mls/hr IV Q8H [facility] Stop: 11/11/16 07:29 Last Admin: 11/11/16 06:12 Dose: 100 mls/hr Lactated Ringer's (Ringers, Lactated) Confirm Administered Dose 1,000 mls @ as directed .ROUTE .STK-MED ONE Stop: 11/10/16 08:36 Iodine (Iodine 2% Mild Tincture) Confirm Administered Dose 30 ml .ROUTE .STK- MED ONE Stop: 11/10/16 06:00 Last Admin: 11/10/16 08:26 Dose: 18 ml Lidocaine/Sodium Bicarbonate (Buffered Lidocaine 1% In Ns 8.4%) 0.25 ml IV ONETIME PRN PRN Reason: Prior to IV Start Last Admin: 11/10/16 06:45 Dose: 0.25 ml Magnesium Hydroxide (Milk Of Magnesia) 30 ml PO BID PRN PRN Reason: Constipation Magnesium Oxide (Magnesium Oxide) 400 mg PO DAILY [facility] Last Admin: 11/11/16 08:55 Dose: 400 mg Magnesium Oxide (Magnesium Oxide) 400 mg PO DAILY [facility] Last Admin: 11/11/16 09:29 Dose: 400 mg Midazolam HCl (Versed 1 Mg/Ml) Confirm Administered Dose 2 mg .ROUTE .STK-MED ONE Stop: 11/10/16 06:23 Midazolam HCl (Versed 1 Mg/Ml) Confirm Administered Dose 2 mg .ROUTE .STK-MED ONE Stop: 11/10/16 08:47 Miscellaneous Information (Remove Patch) 0 ea TRDERM Q72H [facility] Morphine Sulfate (Duramorph Pf) Confirm Administered Dose 10 mg .ROUTE .STK-MED ONE Stop: 11/10/16 06:24 Morphine Sulfate (Morphine) 2 mg IVPUSH Q2H PRN PRN Reason: Breakthrough Pain Multivitamins (Thera) 1 each PO WITHBREAKFAST [facility] Last Admin: 11/11/16 07:49 Dose: 1 each Ondansetron HCl (Zofran) Confirm Administered Dose 4 mg .ROUTE .STK-MED ONE Stop: 11/10/16 06:22 Ondansetron HCl (Zofran) 4 mg IVPUSH Q6H PRN PRN Reason: Nausea/Vomiting Last Admin: 11/10/16 13:13 Dose: 4 mg Ondansetron HCl (Zofran) 4 mg IVPUSH ONETIME PRN PRN Reason: Nausea/Vomiting Stop: 11/10/16 12:00 Oxycodone/Acetaminophen (Percocet 325-5 Mg) 1 - 2 tab PO Q4H PRN PRN Reason: Pain Last Admin: 11/11/16 13:27 Dose: 2 tab Propofol (Diprivan 20 Ml) Confirm Administered Dose 400 mg .ROUTE .STK-MED ONE Stop: 11/10/16 06:22 Propofol (Diprivan 20 Ml) Confirm Administered Dose 200 mg .ROUTE .STK-MED ONE Stop: 11/10/16 08:18 Scopolamine (Transderm-Scop) 1.5 mg TRDERM Q72H PRN PRN Reason: Nausea Last Admin: 11/10/16 14:59 Dose: 1.5 mg Senna (Senna) 8.6 mg PO BID PRN PRN Reason: Constipation Sodium Chloride (Saline Flush) 10 ml FLUSH ASDIRECTED PRN PRN Reason: Keep Vein Open Stop: 11/10/16 12:00 Thyroid ([place] Thyroid) 60 mg PO ACBREAKFAST JENNIFER Last Admin: 11/11/16 05:51 Dose: 60 mg Tranexamic Acid (Cyklokapron) Confirm Administered Dose 1,000 mg .ROUTE .STK- MED ONE Stop: 11/10/16 06:00 Last Admin: 11/10/16 08:41 Dose: 1,000 mg - Exam Wound/Incisions: dressing dry and intact General: alert, cooperative, no acute distress Lungs: Normal respiratory effort Extremities: normal pulses, no calf tenderness (NVS intact. Lety's negative for RLE.) - Problem List Review Problem List Initiated/Reviewed/Updated: Yes - Assessment Assessment (Free Text/Narrative):: POD#1 - right TKA - Plan Plan (Free Text/Narrative):: 1. Hgb 10.8. 2. ASA 325mg BID, TEDs, frequent mobility. 3. Discharge to home today. 4. Further orders per Hospitalist service. Dr. Kern evaluated the pt today.
--- NOTE | 2016-11-12 12:52 | PCM.DCSUM1 ---
Discharge Summary - Hospital Course Brief History: Tao is a 61 yo male who underwent right TKA with Dr. Kern on . The procedure was completed under spinal anesthesia. The pt tolerated the procedure well and was admitted to the Medical-Surgical Unit. Medical management was provided by the Hospitalist service. The pt's Hospital course was uneventful. The pt's Hgb on POD#1 was 10.8. On POD#1, 325mg BID was initiated for VTE prophylaxis. SCDs and TEDs were also ordered. A Mepilex dressing was placed at the incision site at the time of surgery and remained clean and dry. The pt participated in P.T. and O.T. and progressed well. The pt was allowed to WBAT. On POD#1, the pt was deemed appropriate to discharge to home with his . - Discharge Data Discharge Date: 11/11/16 Discharge Disposition: Home, Self-Care 01 Condition: Good - Patient Summary/Data Operative Procedure(s) Performed: right total knee arthroplasty Consults: Consultations 11/10/16 06:54 Consult to Case Management [CONS] Routine Consult to Physician [CONS] Routine OT Evaluation and Treatment [CONS] Routine 11/10/16 06:57 PT Evaluation and Treatment [CONS] Routine - Patient Instructions Diet: Usual Diet as Tolerated Activity: Apply Ice, As Tolerated, Elevate Extremity, Full Weight Bearing Driving: Do Not Drive Showering/Bathing: May Shower Wound/Incision Care: Keep Operative Site/Wound Site Clean and Dry, Do NOT Change Dressing Notify Provider of: Fever, Increased Pain, Swelling and Redness, Drainage, Nausea and/or Vomiting Other/Special Instructions: Please get up and moving around every hour while awake. This helps to prevent blood clots. Please take 325mg aspirin TWICE DAILY - this also helps to prevent blood clots. The medication is being used for blood clot prevention and not for pain control, so please use the medication twice daily as directed. Please wear the FLACO hose during the day and remove them at night. Please schedule for P.T. Complete the P.T. exercises and stretches that were instructed in the Hospital. Please use the pain medication and muscle relaxant as needed. The medication may cause drowsiness and/or constipation. You could use a stool softener like docusate sodium or Colace 100mg twice daily and/or a laxative like Miralax daily for constipation. Contact your primary care provider for further instructions if you are constipated. Please schedule an appointment with your primary care provider for 'routine post-op care'. Use the incentive spirometer often. Please place ice to the knee often. Please elevate the limb to decrease swelling. Keep the Mepilex dressing in place until follow-up. Please call [phone] with questions or concerns. - Discharge Plan Prescriptions/Med Rec: Acetaminophen/oxyCODONE [Percocet 325-5 MG] 1 - 2 tab PO Q4H PRN #60 tablet PRN Reason: Pain Aspirin [Ecotrin] 325 mg PO BID #84 tab.ec Cyclobenzaprine [Flexeril] 10 mg PO TID PRN #40 tablet PRN Reason: muscle spasms Magnesium Oxide 400 mg PO DAILY #30 tablet Home Medications: Home Meds Ascorbic Acid [Vitamin C] 1,000 mg PO DAILY 11/09/16 [History] Calcium Carbonate [Calcium] 600 mg PO DAILY 11/09/16 [History] Fish Oil/[place]-3 Fatty Acids [Fish Oil 1,000 MG] 1,000 mg PO DAILY 11/09/16 [ History] Glucosamine HCl [Glucosamine] 1,500 mg PO DAILY 11/09/16 [History] Magnesium Oxide [Magnesium] 400 mg PO DAILY 11/09/16 [History] Thyroid [[place] Thyroid] 60 mg PO DAILY 11/09/16 [History] Acetaminophen/oxyCODONE [Percocet 325-5 MG] 1 - 2 tab PO Q4H PRN #60 tablet [Rx] Aspirin [Ecotrin] 325 mg PO BID #84 tab.ec 11/11/16 [Rx] Cyclobenzaprine [Flexeril] 10 mg PO TID PRN #40 tablet 11/11/16 [Rx] Magnesium Oxide 400 mg PO DAILY #30 tablet 11/11/16 [Rx] Patient Handouts: Cyclobenzaprine tablets, Acetaminophen; Oxycodone tablets, Total Knee Replacement, Care After, [id number], Total Knee Replacement, Easy- to-Read, Aspirin, ASA oral tablets, Knee Rehabilitation Guidelines Following Surgery Referrals: Bonnie Tristan PA-C [Physician Plastics Fabrication Supervisor] - 11/18/16 10:10 am (2nd appointment on 11/26 at [address] Erlin's office) - Patient Data Vitals - Most Recent: Last Vital Signs Temp 99.0 F 11/11/16 12:25 Pulse 80 11/11/16 12:25 Resp 16 11/11/16 12:25 BP 112/47 L 11/11/16 12:25 Pulse Ox 92 L 11/11/16 12:25 Weight - Most Recent: 193 lb Med Orders - Current: Current Medications Discontinued Medications Aspirin (Ecotrin) 325 mg PO BID [facility] Last Admin: 11/11/16 08:55 Dose: 325 mg Bisacodyl (Dulcolax) 5 mg PO DAILY PRN PRN Reason: Constipation Bupivacaine HCl (Marcaine 0.25%) Confirm Administered Dose 30 ml .ROUTE .STK- MED ONE Stop: 11/10/16 06:00 Last Admin: 11/10/16 08:35 Dose: 30 ml Cefazolin Sodium (Ancef) Confirm Administered Dose 2 gm .ROUTE .STK-MED ONE Stop: 11/10/16 06:00 Last Admin: 11/10/16 08:30 Dose: 2 gm Cefazolin Sodium (Ancef) Confirm Administered Dose 2 gm .ROUTE .STK-MED ONE Stop: 11/10/16 06:22 Morphine Sulfate 8 mg/Epinephrine HCl 0.3 mg/Cefuroxime Sodium 750 mg/Ketorolac Tromethamine 30 mg/Sodium Chloride 27.9 ml 0 mg .XX ONETIME ONE Stop: 11/10/16 07:46 Last Admin: 11/10/16 11:53 Dose: Not Given Cyclobenzaprine HCl (Flexeril) 10 mg PO TID PRN PRN Reason: Spasms Last Admin: 11/11/16 13:30 Dose: 10 mg Diphenhydramine HCl (Benadryl) 25 mg IVPUSH Q6H PRN PRN Reason: pruritis Stop: 11/10/16 12:00 Docusate Sodium (Colace) 100 mg PO BID [facility] Last Admin: 11/11/16 08:55 Dose: 100 mg Ephedrine Sulfate (Ephedrine Sulfate) Confirm Administered Dose 50 mg .ROUTE .STK-MED ONE Stop: 11/10/16 07:21 Ephedrine Sulfate (Ephedrine Sulfate) 5 mg IVPUSH ASDIRECTED PRN PRN Reason: Hypotension Stop: 11/10/16 12:00 Ephedrine Sulfate (Ephedrine Sulfate) Confirm Administered Dose 50 mg .ROUTE .STK-MED ONE Stop: 11/10/16 08:55 Famotidine (Pepcid) 20 mg PO BID [facility] Last Admin: 11/11/16 08:55 Dose: 20 mg Fentanyl (Sublimaze) Confirm Administered Dose 100 mcg .ROUTE .STK-MED ONE Stop: 11/10/16 06:24 Fentanyl (Sublimaze) 50 mcg IVPUSH Q5M PRN PRN Reason: Pain Stop: 11/10/16 09:16 Hydromorphone HCl (Dilaudid) 0.5 mg IVPUSH Q15M PRN PRN Reason: severe pain Stop: 11/10/16 07:41 Lactated Ringer's (Ringers, Lactated) 1,000 mls @ 125 mls/hr IV ASDIRECTED [facility] Last Admin: 11/10/16 06:45 Dose: 125 mls/hr Lidocaine HCl (Xylocaine-Mpf 1%) Confirm Administered Dose 10 mls @ as directed .ROUTE .STK-MED ONE Stop: 11/10/16 06:22 Lactated Ringer's (Ringers, Lactated) Confirm Administered Dose 1,000 mls @ as directed .ROUTE .STK-MED ONE Stop: 11/10/16 06:22 Cefazolin Sodium/Dextrose 2 gm (/ Premix) 50 mls @ 100 mls/hr IV Q8H [facility] Stop: 11/11/16 07:29 Last Admin: 11/11/16 06:12 Dose: 100 mls/hr Lactated Ringer's (Ringers, Lactated) Confirm Administered Dose 1,000 mls @ as directed .ROUTE .STK-MED ONE Stop: 11/10/16 08:36 Iodine (Iodine 2% Mild Tincture) Confirm Administered Dose 30 ml .ROUTE .STK- MED ONE Stop: 11/10/16 06:00 Last Admin: 11/10/16 08:26 Dose: 18 ml Lidocaine/Sodium Bicarbonate (Buffered Lidocaine 1% In Ns 8.4%) 0.25 ml IV ONETIME PRN PRN Reason: Prior to IV Start Last Admin: 11/10/16 06:45 Dose: 0.25 ml Magnesium Hydroxide (Milk Of Magnesia) 30 ml PO BID PRN PRN Reason: Constipation Magnesium Oxide (Magnesium Oxide) 400 mg PO DAILY [facility] Last Admin: 11/11/16 08:55 Dose: 400 mg Magnesium Oxide (Magnesium Oxide) 400 mg PO DAILY [facility] Last Admin: 11/11/16 09:29 Dose: 400 mg Midazolam HCl (Versed 1 Mg/Ml) Confirm Administered Dose 2 mg .ROUTE .STK-MED ONE Stop: 11/10/16 06:23 Midazolam HCl (Versed 1 Mg/Ml) Confirm Administered Dose 2 mg .ROUTE .STK-MED ONE Stop: 11/10/16 08:47 Miscellaneous Information (Remove Patch) 0 ea TRDERM Q72H [facility] Morphine Sulfate (Duramorph Pf) Confirm Administered Dose 10 mg .ROUTE .STK-MED ONE Stop: 11/10/16 06:24 Morphine Sulfate (Morphine) 2 mg IVPUSH Q2H PRN PRN Reason: Breakthrough Pain Multivitamins (Thera) 1 each PO WITHBREAKFAST [facility] Last Admin: 11/11/16 07:49 Dose: 1 each Ondansetron HCl (Zofran) Confirm Administered Dose 4 mg .ROUTE .STK-MED ONE Stop: 11/10/16 06:22 Ondansetron HCl (Zofran) 4 mg IVPUSH Q6H PRN PRN Reason: Nausea/Vomiting Last Admin: 11/10/16 13:13 Dose: 4 mg Ondansetron HCl (Zofran) 4 mg IVPUSH ONETIME PRN PRN Reason: Nausea/Vomiting Stop: 11/10/16 12:00 Oxycodone/Acetaminophen (Percocet 325-5 Mg) 1 - 2 tab PO Q4H PRN PRN Reason: Pain Last Admin: 11/11/16 13:27 Dose: 2 tab Propofol (Diprivan 20 Ml) Confirm Administered Dose 400 mg .ROUTE .STK-MED ONE Stop: 11/10/16 06:22 Propofol (Diprivan 20 Ml) Confirm Administered Dose 200 mg .ROUTE .STK-MED ONE Stop: 11/10/16 08:18 Scopolamine (Transderm-Scop) 1.5 mg TRDERM Q72H PRN PRN Reason: Nausea Last Admin: 11/10/16 14:59 Dose: 1.5 mg Senna (Senna) 8.6 mg PO BID PRN PRN Reason: Constipation Sodium Chloride (Saline Flush) 10 ml FLUSH ASDIRECTED PRN PRN Reason: Keep Vein Open Stop: 11/10/16 12:00 Thyroid ([place] Thyroid) 60 mg PO ACBREAKFAST [facility] Last Admin: 11/11/16 05:51 Dose: 60 mg Tranexamic Acid (Cyklokapron) Confirm Administered Dose 1,000 mg .ROUTE .STK- MED ONE Stop: 11/10/16 06:00 Last Admin: 11/10/16 08:41 Dose: 1,000 mg *Q Meaningful Use (DIS) - VTE *Q VTE Criteria *Q: - Stroke *Q Stroke Criteria *Q: - AMI *Q AMI Criteria *Q:
== END 2016-11-11 15:00 | disposition home or self-care (01) | DRG 302 ==
LOC: JD.MS 06:04 → JD.OB 06:04
PROVIDERS: ADMIT Orthopaedic Surgery; ATTEND Orthopaedic Surgery
PROC: 0SRC0J9 Replacement of Right Knee Joint with Synthetic Substitute, Cemented, Open Approach (ICD-10-PCS; principal; 2016-11-10)
DX: M17.11 Unilateral primary osteoarthritis, right knee (principal); N40.0 Benign prostatic hyperplasia without lower urinary tract symptoms; E03.9 Hypothyroidism, unspecified; E87.5 Hyperkalemia; K21.9 Gastro-esophageal reflux disease without esophagitis; D68.9 Coagulation defect, unspecified; R35.0 Frequency of micturition; Z79.899 Other long term (current) drug therapy; Z96.652 Presence of left artificial knee joint
CPT/HCPCS: 01402; 36415; 73560-26-RT; 73560-RT; 80053; 83735; 85025; 87641; 93005; 94762; 97110-GP; 97116-GP; 97161-GP; 97165-GO; 97535-GO; A9270-GY; C1713; C1776; J0171; J0690; J0697; J1885; J2250; J2270; J2405; J2704; J3010; J3490; J7120

== ENCOUNTER 2019-10-20 15:17 | Emergency (ER) | payer BC ==
[2019-10-20 15:46] VITALS: PULSE 60
--- NOTE | 2019-10-20 15:59 | EDM.PDOC ---
ED HPI GENERAL MEDICAL PROBLEM - General Chief Complaint: Laceration Stated Complaint: LT PINKY FINGER INJURY Time Seen by Provider: 10/20/19 15:49 Source of Information: Reports: Patient History Limitations: Reports: No Limitations - History of Present Illness INITIAL COMMENTS - FREE TEXT/NARRATIVE: Patient is a 64-year-old male who presents to the emergency department with complaints of a laceration and crush injury to his left fifth finger. He states he was planting corn and his finger got crushed beneath the truck bed as it was lowering down. He is unable to extend his finger at the DIP joint. The laceration is located directly over the PIP joint. He is unsure when his last tetanus vaccination was. - Related Data Allergies Allergy/AdvReac Type Severity Reaction Status Date / Time No Known Allergies Allergy Verified 11/10/16 07:03 Home Meds: Home Meds Thyroid [[place] Thyroid] 60 mg PO DAILY 11/09/16 [History] cephALEXin [Keflex] 500 mg PO Q6H #19 cap 10/20/19 [Rx] Past Medical History HEENT History: Reports: Impaired Vision, Other (See Below) Other HEENT History: wears glasses Cardiovascular History: Reports: High Cholesterol, Other (See Below) Other Cardiovascular History: Low resting HR Respiratory History: Reports: None 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 History: Reports: BPH, Other (See Below) Other 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 History: urinary frequency 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 Neurological History: Reports: None Psychiatric History: Reports: None Endocrine/Metabolic History: Reports: Hypothyroidism Hematologic History: Reports: Bleeding Disorder Immunologic History: Reports: None Oncologic (Cancer) History: Reports: None Dermatologic History: Reports: None - Past Surgical History Head Surgeries/Procedures: Reports: None GI Surgical History: Reports: Colonoscopy Musculoskeletal Surgical History: Reports: Arthroscopic Knee Social & Family History - Family History Family Medical History: Noncontributory ED ROS GENERAL - Review of Systems Review Of Systems: Comprehensive ROS is negative, except as noted in HPI. ED EXAM, SKIN/RASH Exam: See Below Exam Limited By: No Limitations General Appearance: Alert, WD/WN, No Apparent Distress Respiratory/Chest: No Respiratory Distress, Lungs Clear, Normal Breath Sounds, No Accessory Muscle Use, Chest Non-Tender Cardiovascular: Normal Peripheral Pulses, Regular Rate, Rhythm, No Edema, No Gallop, No JVD, No Murmur, No Rub Extremities: Other (1.5 cm laceration over the dorsal aspect of the left fifth finger PIP joint. Edema noted throughout the finger. The distal portion of the patient's finger from the DIP joint onward is frozen in flexion. He is unable to straighten this; however, he can flex and extend the finger at the PIP joint) Neurological: Alert, Oriented, CN II-XII Intact, Normal Cognition, Normal Gait, Normal Reflexes, No Motor/Sensory Deficits Psychiatric: Normal Affect, Normal Mood Skin: Warm, Dry, Intact, Normal Color, No Rash ED SKIN PROCEDURES - Laceration/Wound Repair Left Dorsal Digit - 5th (Baby) Appearance: Subcutaneous Distal NVT: Neuro & Vascular Intact Anesthetic Type: Digital Local Anesthesia - Lidocaine (Xylocaine): 1% Plain Local Anesthesia - Bupivicaine (Marcaine): 0.5% Plain Local Anesthetic Volume: 3cc Skin Prep: Chlorhexidine (Hibiciens), Providone-Iodine (Betadine), Saline Exploration/Debridement/Repair: Wound Explored, No Foreign Material Found, Other (Tendon sheath over the PIP joint visualized and appears to be intact.) Closed with: Sutures Lac/Wound length In cm: 1.5 Suture Size: 4-0 # of Sutures: 3 Suture Type: Nylon Sterile Dressing Applied: Provider Tetanus Status Addressed: Yes Complications: No Course - Vital Signs Last Recorded V/S: Last Vital Signs Temp 98.0 F 10/20/19 15:39 Pulse 60 10/20/19 15:39 Resp 18 10/20/19 18:46 BP 130/67 10/20/19 18:46 Pulse Ox 95 10/20/19 18:46 - Orders/Labs/Meds Orders: Active Orders 24 hr Category Date Time Status EKG Documentation Completion [RC] ASDIRECTED Care 10/20/19 17:13 Active Vaccines to be Administered [RC] PER UNIT ROUTINE Care 10/20/19 16:49 Active EKG 12 Lead [EK] Stat Ther 10/20/19 17:13 Ordered Labs: Laboratory Tests 10/20/19 10/20/19 Range/Units 17:25 17:25 WBC 7.16 (4.23-9.07) K/mm3 RBC 4.59 L (4.63-6.08) M/mm3 Hgb 13.2 L (13.7-17.5) gm/dl Hct 40.6 (40.1-51.0) % MCV 88.5 (79.0-92.2) fl MCH 28.8 (25.7-32.2) pg MCHC 32.5 (32.2-35.5) g/dl RDW Std Deviation 43.0 (35.1-43.9) fL Plt Count 199 (163-337) K/mm3 MPV 9.1 L (9.4-12.3) fl Neut % (Auto) 67.7 (34.0-67.9) % Lymph % (Auto) 21.2 L (21.8-53.1) % [place] % (Auto) 9.1 (5.3-12.2) % Eos % (Auto) 1.5 (0.8-7.0) Baso % (Auto) 0.4 (0.1-1.2) % Neut # (Auto) 4.84 (1.78-5.38) K/mm3 Lymph # (Auto) 1.52 (1.32-3.57) K/mm3 [place] # (Auto) 0.65 (0.30-0.82) K/mm3 Eos # (Auto) 0.11 (0.04-0.54) K/mm3 Baso # (Auto) 0.03 (0.01-0.08) K/mm3 Sodium 141 (136-145) mEq/L Potassium 4.3 (3.5-5.1) mEq/L Chloride 105 (98-107) mEq/L Carbon Dioxide 25 (21-32) mEq/L Anion Gap 15.3 H (5-15) BUN 28 H (7-18) mg/dL Creatinine 1.3 (0.7-1.3) mg/dL Est Cr Clr Drug Dosing 58.16 mL/min Estimated GFR (MDRD) 56 (>60) mL/min BUN/Creatinine Ratio 21.5 H (14-18) Glucose 108 (80-115) mg/dL Calcium 8.6 (8.5-10.1) mg/dL Magnesium 2.0 (1.8-2.4) mg/dl Total Bilirubin 0.4 (0.2-1.0) mg/dL AST 12 L (15-37) U/L ALT 19 (16-63) U/L Alkaline Phosphatase 49 (46-116) U/L Troponin I < 0.017 (0.00-0.056) ng/mL Total Protein 7.1 (6.4-8.2) g/dl Albumin 3.8 (3.4-5.0) g/dl Globulin 3.3 gm/dL Albumin/Globulin Ratio 1.2 (1-2) TSH 3rd Generation 2.345 (0.358-3.74) uIU/mL Meds: Medications Discontinued Medications Generic Name Dose Route Start Last Admin Trade Name Noe PRN Reason Stop Dose Admin Bupivacaine HCl 10 ml 10/20/19 16:48 10/20/19 17:47 Sensorcaine-Mpf 0.5% INJECT 10/20/19 16:49 10 ml ONETIME ONE Administration Cephalexin 500 mg 10/20/19 16:51 10/20/19 17:46 Keflex PO 10/20/19 16:52 500 mg ONETIME ONE Administration Diphtheria/Tetanus/Acell Pertussis 0.5 ml 10/20/19 16:49 10/20/19 17:46 Adacel IM 10/20/19 16:50 0.5 ml .ONCE ONE Administration Lidocaine HCl 10 ml 10/20/19 16:48 10/20/19 17:47 Xylocaine 1% INJECT 10/20/19 16:49 10 ml ONETIME ONE Administration - Re-Assessments/Exams Free Text/Narrative Re-Assessment/Exam: 10/20/19 16:55 X-ray of the left fifth finger shows a comminuted fracture proximal to the DIP joint. Called and spoke with Dr. John, orthopedist on-call at [facility] in [place]. He recommended that we sutured the wound closed, splint the extremity , and have him follow-up with hand surgeon in [place]. 10/20/19 17:08 I was updated by nursing staff that on the pulse oximeter, patient's pulse was noted to be in the 30s. surveillance system monitor was applied and it appears that he has a heart rate of the upper 50s to 60, however at the time the monitor was applied he was having bigeminal PACs which were not perfusing. He states that this is happened in the past when he has had surgery. He has seen a ict support technicians for this in the past and has worn Holter monitors. 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 He is does not feel lightheaded or short of breath at this time. States that he has never been symptomatic when he is in this rhythm. We will do some basic lab work including a CBC, CMP, magnesium, troponin, TSH, Ekg 10/20/19 1815 Laceration to the volar aspect of the right PIP joint was explored. I was able to visualize the tendon sheath and it appears to be fully intact, however strength of flexion and extension is unable to be assessed due to the finger fracture. See procedure notes for laceration closure. Wound was covered with a Vaseline infused gauze as well as Coban. Aluminum finger splint was applied to the fifth finger. He will be started on Keflex for infection prophylaxis. He was updated with his tetanus vaccination today. 10/20/19 18:33 Patient's lab work was found to be grossly unremarkable. Discussed further work -up for the cardiac dysrhythmia including Holter monitor and/or cardiology consult. Patient declined this stating that this has been worked up in the past and he has been "told he is fine ". He is able to ambulate to the bathroom with no lightheadedness. He does intermittently come out of the rhythm and is normal sinus rhythm, perfusing all of his beats. We will discharge the patient home with instructions to return if he should experience any symptoms of bradycardia. He is to call tomorrow to schedule a an appointment [facility] Discharge instructions as documented. Departure - Departure Time of Disposition: 18:36 Disposition: Home, Self-Care 01 Condition: Good Clinical Impression: Laceration Finger fracture Qualifiers: Encounter type: initial encounter Finger: little finger Fracture type: closed Phalanx: middle Fracture alignment: displaced Laterality: left Qualified Code(s) : S62.627A - Displaced fracture of middle phalanx of left little finger, initial encounter for closed fracture - Discharge Information *PRESCRIPTION DRUG MONITORING PROGRAM REVIEWED*: No *COPY OF PRESCRIPTION DRUG MONITORING REPORT IN PATIENT TEDDY: No Prescriptions: cephALEXin [Keflex] 500 mg PO Q6H #19 cap Instructions: Finger Fracture, Adult Referrals: Christ Nova PA-C [Primary Care Provider] - Cricket Garcia MD [Ordering Only Provider] - Forms: ED Department Discharge Additional Instructions: You were seen in the emergency department today for a laceration and crush injury to your left 5th finger. The wound was cleansed and closed with 3 sutures. IThere is a fracture of the distal portion of your fifth finger. There is also concerned that you may have damaged the tendons and/or ligaments on the finger with your laceration. A splint has been applied to the finger. This should stay on until you are evaluated by an orthopedic hand surgeon. You have been started on an antibiotic to prevent infection. Take this medication as prescribed until it is complete. Recommend that you call [facility] in [place] first thing tomorrow morning to set up an appointment with a hand surgeon for evaluation of the fracture, as well as your ligaments and tendons. A copy of todays visit as wells as your x-ray images have been sent to their facility and they will have access to them. Return to the ER as needed. Sepsis Event Note - Evaluation Sepsis Screening Result: No Definite Risk - Focused Exam Vital Signs: Vital Signs Temp Pulse Resp BP Pulse Ox 10/20/19 18:46 18 130/67 95 10/20/19 15:39 98.0 F 60 16 161/68 H Date Exam was Performed: 10/20/19 Time Exam was Performed: 19:21 - My Orders Last 24 Hours: My Active Orders 10/20/19 16:49 Vaccines to be Administered [RC] PER UNIT ROUTINE 10/20/19 17:13 EKG Documentation Completion [RC] ASDIRECTED EKG 12 Lead [EK] Stat - Assessment/Plan Last 24 Hours: My Active Orders 10/20/19 16:49 Vaccines to be Administered [RC] PER UNIT ROUTINE 10/20/19 17:13 EKG Documentation Completion [RC] ASDIRECTED EKG 12 Lead [EK] Stat
[2019-10-20] MEDS ORDERED: Lidocaine 1% 10 ML MDV INJECT ONE (16:48)
[2019-10-20] MEDS ORDERED: Bupivacaine 0.5% 10 ML SDV INJECT ONE (16:48)
[2019-10-20] MEDS ORDERED: Diphtheria,Pertussis(Acell),Tetanus Vaccine 0.5 ML Syringe IM ONE (16:49)
[2019-10-20] MEDS ORDERED: Cephalexin 500 MG Cap PO ONE (16:51)
--- NOTE | 2019-10-20 16:57 | CR ---
Left 5th finger: 3 views left 5th finger were obtained. Fracture is noted within the middle phalanx of the 5th finger with mild displacement. Minimal fracture within the tuft of the distal phalanx. Soft tissue swelling is noted. Impression: 1. Fractures as noted above. 2. Soft tissue swelling. Diagnostic code #3 This report was dictated in MDT
[2019-10-20 19:09] VITALS: BP 130/67
== END 2019-10-20 18:46 | disposition home or self-care (01) ==
LOC: JD.ED 15:17
DX: S62.627A Displaced fracture of middle phalanx of left little finger, initial encounter for closed fracture (principal); S61.217A Laceration without foreign body of left little finger without damage to nail, initial encounter; E03.9 Hypothyroidism, unspecified; Z23 Encounter for immunization; Z79.899 Other long term (current) drug therapy; W23.0XXA Caught, crushed, jammed, or pinched between moving objects, initial encounter
CPT/HCPCS: 12001; 36415; 73140; 80053; 83735; 84443; 84484; 85025; 90471; 90715; 93005; 99283; A9270; J2001; J3490

== ENCOUNTER 2023-08-05 06:00 | Day surgery (SDC) | payer MEDICARE, OTHER ==
[~2023-08-05 06:00] MED LIST changes: +Bupivacaine 0.25% 10 ML SDV ONE; -Iodine/Sodium Iodide 2% Tincture 30 ML Bottle ONE; -Lactated Ringers 1,000 ML IV SCH; -Lidocaine 1%/Sod Bicarbonate in NS 8.4% 1 ML Syringe IV PRN; -Sodium Chloride 0.9% 10 ML Syringe FLUSH PRN; -ceFAZolin 1 GM Vial ONE
[2023-08-05] MEDS ORDERED: fentaNYL 100 MCG/2 ML SDV ONE (06:06)
[2023-08-05] MEDS ORDERED: Midazolam 1 MG/ML 2 ML SDV ONE (06:06)
[2023-08-05] MEDS ORDERED: cloNIDine 1,000 MCG/10 ML SDV ONE (06:07)
[2023-08-05] MEDS ORDERED: Lidocaine 1% 6 ML ONE (06:07)
[2023-08-05] MEDS ORDERED: Dexamethasone 4 MG/ML 5 ML MDV ONE (06:07)
[2023-08-05] MEDS ORDERED: EPINEPHrine 1 MG/ML SDV ONE (06:08)
[2023-08-05] MEDS: Lactated Ringers 1,000 ML IV SCH (06:15)
[2023-08-05] MEDS ORDERED: Ropivacaine 0.5% 5 MG/ML 30 ML SDV ONE (06:16)
[2023-08-05] MEDS ORDERED: Propofol 200 MG/20 ML SDV ONE ×3 (07:07→08:14)
[2023-08-05] MEDS ORDERED: ceFAZolin 2 GM Vial ONE (07:30)
[2023-08-05] MEDS ORDERED: Ondansetron 4 MG/2 ML SDV ONE (07:35)
[2023-08-05] MEDS: Tranexamic Acid 1,000 MG/10 ML Vial ONE (08:32)
[2023-08-05] MEDS ORDERED: Acetaminophen/HYDROcodone 325-5 MG Tab PO PRN (09:05)
[2023-08-05 12:04] VITALS: BP 142/62; PULSE 65
[2023-08-05] MEDS: Vancomycin 1 GM SDV ONE (12:45)
== END 2023-08-05 11:35 | disposition home or self-care (01) ==
LOC: JD.SDS 06:00
PROVIDERS: ATTEND Orthopaedic Surgery
DX: M75.121 Complete rotator cuff tear or rupture of right shoulder, not specified as traumatic (principal); M19.011 Primary osteoarthritis, right shoulder; K21.9 Gastro-esophageal reflux disease without esophagitis; N40.0 Benign prostatic hyperplasia without lower urinary tract symptoms; M19.90 Unspecified osteoarthritis, unspecified site; E78.5 Hyperlipidemia, unspecified; E03.9 Hypothyroidism, unspecified; M54.12 Radiculopathy, cervical region; G47.33 Obstructive sleep apnea (adult) (pediatric); I49.1 Atrial premature depolarization; M19.019 Primary osteoarthritis, unspecified shoulder; Z79.899 Other long term (current) drug therapy; G47.30 Sleep apnea, unspecified
CPT/HCPCS: 23472; 64415; 76000; 97161; C1713; C1769; C1776; J0171; J0690; J0735; J1100; J2250; J2405; J2704; J2795; J3010; J3370; J7030; J7120; 01638; J3490